=== PATIENT | female | born 2000 | race Caucasian/White ===

== ENCOUNTER 2023-01-20 00:08 | Emergency (ER) | payer SELFPAY ==
[~2023-01-20] VITALS: Ht 170.2 cm; Wt 52.2 kg
[2023-01-20 00:18] VITALS: BP 99/71; PULSE 52; RESP 16; TEMP 98.1; O2SAT 99
[2023-01-20 02:24] VITALS: BP 95/60; PULSE 60; RESP 16; TEMP 98.1; O2SAT 99
== END 2023-01-20 02:24 | disposition home or self-care (01) ==
LOC: MED 00:08
DX: F10.129 Alcohol abuse with intoxication, unspecified (principal); Y90.9 Presence of alcohol in blood, level not specified
CPT/HCPCS: 99283